=== PATIENT | male | born 1990 | race Caucasian/White ===

== ENCOUNTER 2017-02-20 12:00 | Inpatient (IN) | payer OTHER ==
--- NOTE | ~2017-02-20 | DS ---
Unit #: [id number] #: [id number] Patient: FREDI AMES [id number] [facility] [address] [place] [address] [id number] I MR#: [id number] NAME: FREDI AMES ROOM: [facility] Age: 26 Sex: M Admission Date: 02/20/2017 : 1990 Discharge Date: 02/22/2017 Attending Physician: Mark Noyola M.D. Primary Care Physician: Primary Care Physician No DISCHARGE SUMMARY REASON FOR ADMISSION Depression and drug use. DIAGNOSTIC STUDIES Pertinent laboratory data, the patient had routine drug work that included a CMP that was grossly within normal parameters with the exception of potassium slightly high at 5.3, AST of 112 and ALT of 38 all in keeping with recent drug use. TSH was normal at 0.51, T4 normal at 1.01. CBC was well within normal parameters, RPR was nonreactive. Tox screen was positive for marijuana. Rest of urinalysis was within normal parameters with the exception of the urobilinogen of 1.0. HOSPITAL COURSE The patient was admitted for safety and stabilization, for issues of depression and suicidal ideation. Additionally, upon evaluation at the admission center, as well as polysubstance abuse including opiate dependency and withdrawal from alcohol and stimulant abuse. The patient was put on appropriate opiate detox protocol and tolerated it well. He was maintained on his home medications of Lexapro and Strattera for his mood issues. The patient showed rapid improvement over hospitalization. He did have some symptoms and was still scoring detox symptoms as recently as the night before discharge and was still scoring a 13 at that time, according to the staff but on the day of discharge the patient reported he felt good. His mood was good. He denied ever actually having suicidal ideation. He said that he said that "because I didn't know what else to do with myself." He went to groups and activities and was pleasant and cooperative on the unit, took his medications, and was goal-focused to follow up with the CD/IOP program at [facility] for his medications as scheduled. As there were no acute mood issues and the patient appeared to have exaggerated his suicidal issues he was felt appropriate for discharge. DISCHARGE DIAGNOSES [place] I Major depressive disorder, recurrent, severe, without psychotic features. Opiate dependency withdraw. Alcohol abuse. Stimulant abuse. [place] II [place] III [place] IV [place] V Unit #: [id number] #: [id number] Patient: FREDI AMES DISCHARGE INSTRUCTIONS The patient will be discharged home to follow up at the CD/IOP program here as well as with [facility] as scheduled. DISCHARGE MEDICATIONS Included: 1. Lexapro 10 mg daily for depression 2. Strattera 40 mg a day for ADHD treatment No other medications recommended. CONDITION AT DISCHARGE Improving. PROGNOSIS Guarded given the patient's history of poor compliance. DIET AND ACTIVITY Diet is regular. Activity is as tolerated with sobriety encouraged. Dictated by... Mark Noyola M.D. RAFI/rosalia TD: 02/22/2017 11:45 JOB #: [id number] DISCHARGE SUMMARY Page 1 of 1 X Mark Noyola MD X DISCHARGE SUMMARY
--- NOTE | ~2017-02-20 | PA ---
Unit #: [id number] #: [id number] Patient: FREDI AMES [id number] [place] [address] [id number] I MR#: [id number] NAME: FREDI AMES ROOM: P257 Age: 26 Sex: M Admission Date: 02/20/2017 : 1990 Date of Assessment: 02/21/2017 Attending Physician: Mark Noyola M.D. Admitting Physician: Mark Noyola M.D. Primary Care Physician: Primary Care Physician No PSYCHIATRIC ASSESSMENT DATE OF SERVICE 02/21/2017. LOCATION [facility], [address] [place] [address], room #257, bed #1. INFORMANTS The patient and chart, both are reliable. CHIEF COMPLAINT "I relapsed again." HISTORY OF PRESENT ILLNESS This is a 26-year-old white male with long-standing history of polysubstance dependency and abuse as well as comorbid mood problems, depression and anxiety. We admitted at this time after presenting with issues of thoughts of harming himself. The patient has relapsed on polysubstances recently including primarily heroin as well as abusing stimulants and alcohol. The patient reports this has been going on for the several weeks, if not the last 2 to 3 months with daily use of heroin and frequent use of the other substances. The patient overall reports still being depressed, feeling out of control, having suicidal thoughts, but no plan today. No homicidal thoughts towards anybody else. There was some mention of that in the evaluation, apparently that it was in the past year. The patient cites the relapse being due to no specific trigger. He has good support through his family, but he is unemployed at this time. Overall, the patient was compliant with the interview process for the most part. PAST PSYCHIATRIC HISTORY Currently being treated at [facility]. Has done fairly well on the medications when he is not using drugs. History of previous psychiatric admissions here primarily for substance abuse. No actual history of HI or psychosis, but does have a history of SI, but no attempts. FAMILY HISTORY Noncontributory. SOCIAL HISTORY As noted the patient being single, no children. He lives at home with his parents. Currently unemployed. Basic education. MEDICAL HISTORY Unit #: [id number] #: [id number] Patient: FREDI AMES Nothing of significance. MEDICATION HISTORY Lexapro and Strattera. ALLERGIES No known drug allergies. SUBSTANCE ABUSE HISTORY As noted above. Longstanding history of relapse and noncompliance with sobriety. Various treatment programs in the past. MENTAL STATUS EXAMINATION General appearance; this is a limitedly groomed male, multiple tattoos, good eye contact. Speech was clear and coherent with normal prosody. Mood was depressed with a constricted affect. Thought process and content were grossly organized and linear. No overt evidence of psychosis. Positive for SI, but no plan. The patient had no HI at this time. The patient's memory was grossly intact. Associations were normal. Cognitive function was at baseline. Alert and oriented x4. Insight and judgment were poor. ASSETS AND LIABILITIES Assets include support through family. Previous exposure to substance abuse and psychiatric treatment consistent with use of his psychiatric medications. Liabilities include comorbid drug use, unemployment. ADMITTING DIAGNOSES 1. Major depressive disorder, recurrent, severe, without psychotic features. 2. Opioid dependency. 3. Stimulant abuse. 4. Alcohol abuse. PSYCHIATRIC PLAN Continue the patient's admission for safety and stabilization for ongoing issues with his mood and substance abuse. The patient has been maintained on his home dose of Lexapro and Strattera for his mood with hopes of clearing from the substances would allow this medication to be more effective in treatment of his underlying mood issues. The patient is placed on opiate detox for now since that seemed to be the drug of choice and we monitored for any changes as necessary. The patient was encouraged to go to groups and activities and cooperate, work per the rules of the milieu. The patient currently on suicide precautions. TREATMENT GOALS Resolution of all symptoms in a safe controlled environment with discharge planning most likely involving outpatient care through the [facility] program. He will return to [facility]. ESTIMATED LENGTH OF STAY Approximately 5 days. Dictated by... Mark Noyola M.D. Unit #: [id number] #: [id number] Patient: FREDI AMES SB/baltazar TD: 02/22/2017 02:08 JOB #: [id number] PSYCHIATRIC ASSESSMENT Page 1 of 1 X Mark Noyola MD X PSYCHIATRIC ASSESSMENT
--- NOTE | ~2017-02-20 | HP ---
Unit #: [id number] #: [id number] Patient: FREDI AMES [id number] [facility] [address] [place] [address] [id number] I MR#: [id number] NAME: FREDI AMES ROOM: P257 Age: 26 Sex: M Admission Date: 02/20/2017 : 1990 Attending Physician: Mark Noyola M.D. Admitting Physician: Mark Noyola M.D. Primary Care Physician: Primary Care Physician No HISTORY AND PHYSICAL HISTORY OF PRESENT ILLNESS Fredi is a 26 year old admitted to [address] [place] [address] because of his continued drug use. PAST MEDICAL HISTORY 1. Long history of illicit substance abuse to include IV drugs. 2. Hepatitis C. PAST SURGICAL HISTORY 1. Appendectomy. 2. Bilateral inguinal hernia repairs. ALLERGIES No known drug allergies. SOCIAL HISTORY Smokes one half packs per day. Denies alcohol. Admits to long history of illicit substance abuse to include IV heroin. FAMILY HISTORY Medically noncontributory. REVIEW OF SYSTEMS CONSTITUTIONAL: No fever or chills. HEENT: Denies any sore throat, ear pain or runny nose. CARDIOVASCULAR: Denies chest pain, irregular heart rhythm or palpitations. CHEST: Denies shortness of breath or cough. No hemoptysis. GASTROINTESTINAL: Denies nausea, vomiting, diarrhea or chronic constipation. ENDOCRINE: Denies history of increased thirst or urination. No recent significant weight loss or gain. GENITOURINARY: Denies dysuria, frequency, or hematuria. SKIN: Denies any rashes. HEMATOLOGIC: Denies history of increased bleeding or bruising. MUSCULOSKELETAL: Denies any hot, swollen joints. No generalized muscle pain. NEUROLOGIC: Denies problems with vision or speech. No frequent, severe headaches. No numbness, tingling or weakness in any extremities. Denies loss of bladder or bowel control. CURRENT MEDICATIONS Detox protocol. Unit #: [id number] #: [id number] Patient: FREDI AMES PHYSICAL EXAMINATION GENERAL: Alert, well nourished. No apparent distress. VITAL SIGNS: Blood pressure 128/82, heart rate 62, respirations 16, and temperature 98.6. WEIGHT: 185. HEIGHT: Not recorded. SKIN: Warm and dry without rash or lesion. HEENT: Normocephalic. TMs not viewed. Oral and nasal passages clear. Conjunctivae clear. PERRLA. EOMs intact. NECK: Supple without lymphadenopathy or thyromegaly. HEART: Regular rate and rhythm without murmur. LUNGS: Clear. ABDOMEN: Soft, nontender. : Not done. EXTREMITIES: No evidence of cyanosis, clubbing or edema. Moves all without focal deficit. NEUROLOGICAL: Grossly within normal limits. Cranial Nerves: II: Visual townsend are intact. III, IV AND : Extraocular movements are intact. Pupils are equal, round and reactive to light. V: Facial sensation is grossly normal. VII: Facial movements and expression are normal. VIII: Auditory acuity grossly intact. IX, X: Uvula is midline. Phonation is normal. XI: Patient shrugs shoulders and turns head normally. XII: Tongue protrudes in the midline. Sensory and Motor Function: Sensory and motor sensation is grossly normal. Motor: moves all extremities well. Coordination: Gait is normal. Deep Tendon Reflexes: Intact. IMPRESSION Psychiatric admission. RECOMMENDATIONS PSYCHIATRIC: Per psychiatrist. MEDICAL: I see no contraindication to participate in this facility's activities. MEDICAL PROGNOSIS Good. MEDICAL CONDITION Stable. Dictated by... Litzy Vergara PEdgarAEdgar-Radha. for Cristina Chapa/ash TD: 02/21/2017 12:41 JOB #: [id number] Unit #: [id number] #: [id number] Patient: FREDI AMES HISTORY AND PHYSICAL Page 1 of 1 X Litzy Vergara HISTORY AND PHYSICAL
[2017-02-21 09:46] LABS: BASOPHIL# 0.1 X10e3 (0-0.3); BASOPHIL% 0.8 % (0-2.5); DIFF IND NO; EOSINOPHIL# 0.5 X10e3 (0-0.7); EOSINOPHIL% 6.9 % (0.0-7.0); HEMOGLOBIN 15.1 gm/dL (13.0-16.0); LYMPHOCYTE# 2.5 X10e3 (1.0-3.5); LYMPHOCYTE% 32.9 % (17.0-45.0); MEAN CELL VOLUME 85.6 FL (83-96); MEAN CORPUSCULAR HEMOGLOBIN 28.1 PG (28-34); MEAN CORPUSCULAR HGB CONC 32.8 g/dL (30-36); MEAN PLATELET VOLUME 8.8 FL (6.5-11.5); MONOCYTE# 0.9 X10e3 (0-1.0); MONOCYTE% 11.4 % (3.0-12.0); NEUTROPHIL# 3.6 X10e3 (1.5-7.1); PLATELET COUNT 250 X10e3 (140-420); RED BLOOD COUNT 5.37 X10e (3.90-5.60); RED CELL DISTRIBUTION WIDTH 14.6 % (11.0-15.5); WHITE BLOOD COUNT 7.5 X10e3 (4.0-10.5)
[2017-02-21 10:11] LABS: ALBUMIN SERUM 3.9 g/dL (3.5-5.0); BUN/CREATININE RATIO 11.81; CALCIUM SERUM 9.4 mg/dL (8.4-10.2); CREATININE SERUM 1.1 mg/dL (0.6-1.4); GLOM FILT RATE Estimated 90.9 mL/min (>60); POTASSIUM 5.3 mmol/L (3.5-5.1); PROTEIN TOTAL SERUM 6.9 g/dL (6.0-8.3)
[2017-02-21 12:31] LABS: URINE APPEARANCE CLEAR; URINE BILIRUBIN NEG (NEG); URINE BLOOD NEG (NEG); URINE COLOR YELLOW; URINE GLUCOSE NEG (NEG); URINE KETONE NEG (NEG); URINE LEUKOCYTE ESTERASE NEG (NEG); URINE NITRATE NEG (NEG); URINE PROTEIN NEG (NEG); URINE SPECIFIC GRAVITY 1.021 (1.003-1.035)
[2017-02-21 13:09] LABS: AMPHETAMINE NEG (NEG); BARBITURATES NEG (NEG); BENZODIAZEPINES NEG (NEG); COCAINE NEG (NEG); MARIJUANA POS (NEG); OPIATES NEG (NEG); TRICYCLIC ANTIDEPRESSANTS NEG (NEG); U METHADONE NEG (NEG)
== END 2017-02-22 12:45 | disposition home or self-care (01) | DRG 885 ==
LOC: P2L 15:57
PROVIDERS: Psychiatry & Neurology Psychiatry
PROC: HZ2ZZZZ Detoxification Services for Substance Abuse Treatment (ICD-10-PCS; principal; 2017-02-20)
DX: F33.2 Major depressive disorder, recurrent severe without psychotic features (principal); F11.20 Opioid dependence, uncomplicated; F17.210 Nicotine dependence, cigarettes, uncomplicated; F15.10 Other stimulant abuse, uncomplicated; F10.10 Alcohol abuse, uncomplicated
CPT/HCPCS: 80053; 80307; 81003; 85025; 86592